=== PATIENT | male | born 1985 | race Asian ===

== ENCOUNTER 2017-08-30 19:00 | Emergency (ER) | payer SELFPAY ==
[~2017-08-30] VITALS: Ht 170.2 cm; Wt 75.7 kg
[2017-08-30 19:07] VITALS: BP_SYST 132
[2017-08-30 20:15] VITALS: BP_SYST 130
== END 2017-08-30 20:15 ==
LOC: SED 19:00
DX: S90.211A Contusion of right great toe with damage to nail, initial encounter (principal); M25.511 Pain in right shoulder; M25.571 Pain in right ankle and joints of right foot; W22.8XXA Striking against or struck by other objects, initial encounter; Y93.89 Activity, other specified; Y92.89 Other specified places as the place of occurrence of the external cause; Y99.8 Other external cause status
CPT/HCPCS: 99283